=== PATIENT | female | born 1985 | race African-American/Black ===

== ENCOUNTER 2017-11-26 00:47 | Emergency (ER) | payer OTHER ==
[~2017-11-26] VITALS: Ht 157.5 cm; Wt 86.2 kg
[2017-11-26] MEDS ORDERED: MINIPRESS5 MG PO (01:07)
[2017-11-26] MEDS ORDERED: TRAZODONE 150150 M1 PO (02:27)
[2017-11-26 02:43] LABS: URINE BILIRUBIN NEGATIVE (Negative); URINE BLOOD NEGATIVE (Negative); URINE CLARITY CLEAR; URINE COLOR YELLOW; URINE GLUCOSE-RANDOM* NEGATIVE (Negative); URINE KETONES NEGATIVE (Negative); URINE LEUKOCYTES-REFLEX NEGATIVE (Negative); URINE NITRITE-REFLEX NEGATIVE (Negative); URINE PROTEIN (DIPSTICK) NEGATIVE (Negative); URINE SPECIFIC GRAVITY 1.015 (1.005-1.035); URINE UROBILINOGEN 0.2 E.U./dl (0.2-1.0)
[2017-11-26 02:52] LABS: AMP/METHAMP Negative (Negative); BARBITURATES Negative (Negative); BENZODIAZEPINES Negative (Negative); COCAINE Negative (Negative); METHADONE Negative (Negative); OPIATES Negative (Negative); PCP POSITIVE (Negative)
[2017-11-26 03:03] LABS: ABSOLUTE NEUTROPHILS 3.3 thou/uL (1.4-8.2); EOSINOPHILS 0.4 % (0.0-3.0); HEMATOCRIT 42.3 % (37.0-47.0); HEMOGLOBIN 14.3 gm/dL (12.0-15.0); LYMPHOCYTES 27.9 % (24.0-44.0); MCH 30.2 pg (26.0-34.0); MCHC 33.7 g/dL (28.0-37.0); MCV 89.7 fL (80.0-100.0); MONOCYTES 7.8 % (1.0-8.0); PLATELET COUNT 373 thou/uL (150-400); POLYS 62.9 % (36.0-66.0); RBC 4.71 mil/uL (4.20-5.00); WBC 5.2 thou/uL (4.0-11.0)
[2017-11-26 03:11] LABS: ANION GAP 8 mmol/L (7-16); BUN 6 mg/dL (7-18); CALCIUM 9.2 mg/dL (8.5-10.1); CHLORIDE 106 mmol/L (98-107); CO2 25 mmol/L (21-32); CREATININE 0.9 mg/dL (0.6-1.0); GLUCOSE 91 mg/dL (74-106); POTASSIUM 3.8 mmol/L (3.5-5.1); SODIUM 139 mmol/L (136-145)
[2017-11-26 03:17] LABS: ALBUMIN 3.5 g/dL (3.4-5.0); SALICYLATE 3.1 mg/dL (2.8-20.0); SGOT 22 U/L (15-37); SGPT 18 U/L (30-65); TOTAL BILIRUBIN 0.5 mg/dL (<0.1-1.0); TOTAL PROTEIN 6.8 g/dL (6.4-8.2)
== END 2017-11-26 06:00 | disposition home or self-care (01) ==
LOC: EDBD 00:47 → ER 00:47
PROVIDERS: Emergency Medicine
DX: F16.129 Hallucinogen abuse with intoxication, unspecified (principal); F12.921 Cannabis use, unspecified with intoxication delirium; F10.99 Alcohol use, unspecified with unspecified alcohol-induced disorder